=== PATIENT | female | born 1940 | race Caucasian/White ===

== ENCOUNTER 2019-07-19 10:46 | Emergency (ER) | payer OTHER ==
[~2019-07-19] VITALS: Ht 154.9 cm; Wt 81.0 kg
[~2019-07-19 10:46] MED LIST: ASPI81 PO; ATEN100T PO; CAND16TA25 PO; GLUC100019 PO; OMEG300C3 PO; ROSU20TA23 PO
[2019-07-19 11:02] VITALS: BP 188/103
[2019-07-19] MEDS ORDERED: [UNRECOGNIZED DRUG - OTHER] PO (11:11)
[2019-07-19] MEDS ORDERED: ATEN50TA PO (11:11)
== END 2019-07-19 12:28 | disposition home or self-care (01) ==
LOC: EMS 10:47
DX: L98.8 Other specified disorders of the skin and subcutaneous tissue (principal); I10 Essential (primary) hypertension; E78.00 Pure hypercholesterolemia, unspecified; Z79.899 Other long term (current) drug therapy